=== PATIENT | female | born 2000 | race Caucasian/White ===

== ENCOUNTER → 2025-06-06 | Outpatient (CLI) | payer SELFPAY ==
[2025-06-06 10:21] LABS: Hematocrit 36.8 % (37-47); Hemoglobin 12.7 g/dL (12.0-15.0); Immature Granulocytes Count 0.050 X10^3/uL (0.0-0.0); Mean Corp Hgb Conc 34.5 g/dL (32-36); Mean Corpuscular Volume 90.4 fL (81-99); Mean Platelet Vol. 10.6 fl (6.2-12.0); NRBC Flagged by Analyzer 0 % (0-5); Platelet Count 251 K/mm3 (150-450); RBC Distribution Width CV 12.6 % (11.6-14.6); RBC Distribution Width SD 41.4 fl (35.1-43.9); Red Blood Count 4.07 M/mm3 (4.2-5.4); White Blood Count 10.4 K/mm3 (4.4-11.0)
[2025-06-06 11:11] LABS: Glucose Challenge Gest 1H 50g 103 mg/dL (70-140); HIV Nonreactive (Nonreactive); Syphilis Antibodies Nonreactive (Nonreactive)
== END | disposition home or self-care (01) ==
LOC: BWCLAB 09:42
PROVIDERS: PCP Nurse Practitioner Family; Referring Provider Obstetrics & Gynecology; Visit Provider Obstetrics & Gynecology
DX: O09.90 Supervision of high risk pregnancy, unspecified, unspecified trimester (principal); E89.2 Postprocedural hypoparathyroidism; Z3A.00 Weeks of gestation of pregnancy not specified; Z78.9 Other specified health status
CPT/HCPCS: 36415; 82950; 84443; 85025; 86703; 86780; 86787; 86850; 86900; 86901

== ENCOUNTER → 2025-08-01 | Outpatient (CLI) | payer SELFPAY ==
[2025-08-01 12:18] LABS: Hematocrit 35.3 % (37-47); Hemoglobin 12.0 g/dL (12.0-15.0); Immature Granulocytes Count 0.060 X10^3/uL (0.0-0.0); Mean Corp Hgb Conc 34.0 g/dL (32-36); Mean Corpuscular Volume 91.2 fL (81-99); Mean Platelet Vol. 11.5 fl (6.2-12.0); NRBC Flagged by Analyzer 0 % (0-5); Platelet Count 233 K/mm3 (150-450); RBC Distribution Width CV 13.2 % (11.6-14.6); RBC Distribution Width SD 42.9 fl (35.1-43.9); Red Blood Count 3.87 M/mm3 (4.2-5.4); White Blood Count 10.8 K/mm3 (4.4-11.0)
[2025-08-01 12:59] LABS: Creatinine, Urine (random) 45.30 mg/dL (28.00-217.00); Protein, Urine (Random) 8.1 mg/dL (0.0-12.0); Protein:Creat Ratio 179 mg/g CRE (0-200)
[2025-08-01 13:44] LABS: AST(SGOT) 17 U/L (<=31); Alanine Aminotransfer ALT/SGPT 11 U/L (<=34); Albumin, Serum 3.6 g/dL (3.5-5.0); Alkaline Phosphatase 100 U/L (35-104); Anion Gap 12 (5-15); BUN 10 mg/dL (4-19); BUN/Creat Ratio 21.4 RATIO (10-20); Calcium,Total 9.0 mg/dL (7.6-11.0); Carbon Dioxide 21.1 mmol/L (21.0-32.0); Chloride 105 mmol/L (98-108); Globulin 3.0 g/dL (2.2-4.2); Glucose 80 mg/dL (70-99); LDH 168 U/L (84-246); Potassium 4.0 mmol/L (3.3-5.1)
== END | disposition home or self-care (01) ==
PROVIDERS: PCP Nurse Practitioner Family; Referring Provider Obstetrics & Gynecology; Visit Provider Obstetrics & Gynecology
DX: O09.90 Supervision of high risk pregnancy, unspecified, unspecified trimester (principal); R51.9 Headache, unspecified
CPT/HCPCS: 36415; 80053; 82570; 83615; 84156; 85025; 87081

== ENCOUNTER 2025-08-15 11:43 | Outpatient (CLI) | payer MEDICAID, SELFPAY ==
[2025-08-15 12:14] VITALS: BP 129/86; PULSE 93
[2025-08-15 12:26] VITALS: BMI 23.0
[2025-08-15 12:29] VITALS: BP 128/91; PULSE 83
[2025-08-15 12:34] VITALS: BP 126/88; PULSE 88
[2025-08-15 12:44] VITALS: BP 129/87; PULSE 83
--- NOTE | 2025-08-19 21:49 | OB.TRI.PN ---
Progress Notes Date of Service: 08/15/25 Progress Note: patient seen at 37 weeks for elevate dbps- patient refused bloodwork, had already hda monitoring in office for nst. ham bps all WNL. reviewed with patient precautions, patient stable for dc to home
== END 2025-08-15 13:00 | disposition home or self-care (01) ==
LOC: WPOUT 11:44 → WP 11:44
PROVIDERS: PCP Nurse Practitioner Family; Referring Provider Obstetrics & Gynecology; Visit Provider Obstetrics & Gynecology
DX: O99.891 Other specified diseases and conditions complicating pregnancy (principal); R03.0 Elevated blood-pressure reading, without diagnosis of hypertension; Z79.82 Long term (current) use of aspirin; Z79.899 Other long term (current) drug therapy; Z3A.37 37 weeks gestation of pregnancy
CPT/HCPCS: 99221; G0378

== ENCOUNTER 2025-08-22 12:26 | Inpatient (IN) | payer MEDICAID, SELFPAY ==
[2025-08-22] VITALS (23 sets, daily range): BP systolic 132–147; BP diastolic 79–104; PULSE 68–83; RESP 16–18; TEMP 36.1–37; O2SAT 96–100; BMI 23.4
[2025-08-22] MEDS: 0.9% Saline Lock 10 ML Syringe IV (13:15)
[2025-08-22 13:33] LABS: Hematocrit 35.5 % (37-47); Hemoglobin 12.3 g/dL (12.0-15.0); Immature Granulocytes Count 0.030 X10^3/uL (0.0-0.0); Mean Corp Hgb Conc 34.6 g/dL (32-36); Mean Corpuscular Volume 90.1 fL (81-99); Mean Platelet Vol. 11.5 fl (6.2-12.0); NRBC Flagged by Analyzer 0 % (0-5); Platelet Count 227 K/mm3 (150-450); RBC Distribution Width CV 12.9 % (11.6-14.6); RBC Distribution Width SD 42.4 fl (35.1-43.9); Red Blood Count 3.94 M/mm3 (4.2-5.4); White Blood Count 9.6 K/mm3 (4.4-11.0)
[2025-08-22 14:23] LABS: Creatinine, Urine (random) 14.00 mg/dL (28.00-217.00); Protein, Urine (Random) < 6.0 mg/dL (0.0-12.0); Protein:Creat Ratio 220 mg/g CRE (0-200)
[2025-08-22 14:24] LABS: AST(SGOT) 20 U/L (<=31); Uric Acid 4.4 mg/dL (2.6-6.0)
[2025-08-22 14:31] LABS: Alanine Aminotransfer ALT/SGPT 12 U/L (<=34); Estimated Creatinine Clearance 177.76 ml/min (50-250); Hepatitis C Antibody Nonreactive (Nonreactive)
[2025-08-22 14:32] LABS: Syphilis Antibodies Nonreactive (Nonreactive)
[2025-08-22 14:36] LABS: Hepatitis B Surface Antigen Nonreactive (Nonreactive)
--- NOTE | 2025-08-22 18:29 | PCM.HP.OB ---
HPI - General General Date of Admission: 08/22/25 HPI Narrative NATALY STINSON, is a 25 y/o @3 weeks 0 days who presents to l&D for IOL due to gestational hypertension. Her prot:cr ratio was normal and PIH lab serum values all within normal limits. Maternal Data Information JUAN Calculator Estimated Delivery Date Method Current WG Current Estimate 08/29/25 Manual 39w 0d Other Estimates 08/16/25 LMP (Certain) 40w 6d PFSH PFS Medical History (Updated 08/22/25 @ 16:15 by Caro Lu CNM) Gestational HTN Post-surgical hypoparathyroidism Postoperative primary hypothyroidism Hyperthyroidism Home Medications ?Medication ?Instructions ?Recorded ?Last Taken ?Type calcitriol 0.5 mcg capsule 0.5 mcg PO QDAY parahypothroidism 04/16/24 08/21/25 History calcium 315 mg (as 1 tab PO DAILY parahypothyroidism 04/16/24 08/21/25 History citrate)-vitamin D3 5 mcg (200 unit) tablet aspirin 81 mg tablet 81 mg PO QDAY GHTN 06/04/25 08/21/25 History levothyroxine 88 mcg tablet 150 mcg PO .qd, 1/2 on Sundays06/04/25 08/22/25 History thyroid magnesium 250 mg tablet 500 mg PO QDAY muscle cramps 06/04/25 08/22/25 History multivit-min no.71-iron fum 28 1 cap PO DAILY 06/04/25 08/21/25 History mg-folate no.1 1 mg-dha 300 mg capsule ([facility]) Allergy/AdvReac Type Severity Reaction Status Date / Time chocolate AdvReac GI Upset Verified 08/22/25 13:26 cocoa AdvReac unknown Verified 08/22/25 13:26 Family History Grandmother Graves' disease Thyroid eye disease Thyroid disorder Aunt Rico thyroiditis Surgical History History of total thyroidectomy (01/27/24) Social History adopted: No household members: spouse housing: house current occupational status: employed current occupation: self employed dairy farm current occupational exposures/hazards: No pets and animals: Yes (Avoid litterbox) pets and animals: cat(s) history of recent travel: No sexually active: Yes Smoking Status: Never smoker Electronic Cigarette Use: not used second hand exposure: No alcohol intake: current alcohol intake frequency: holidays/special occasions only details: Not while substance use type: does not use well-balanced diet: daily or most days caffeine: Yes Type: coffee Number of servings: 1 and tea Number of servings: 1 eating out: 1-3 times/week during the past year weight has: increased > 10 lbs what type of physical activity do you participate in: other details: Farm work frequency: daily duration: > 90 minutes/day thiago/faith: Episcopal seatbelt use: always do you feel safe at home: Yes additional social history: [employer] History 1 Elective abortions Hx Para 0 Spontaneous abortions Hx # Term Pregnancies Ectopic pregnancies Hx # Pregnancies Multiple births # of living children Visit Details Expected Delivery Route/Plan NAVIN fom cross tie turner Labor Preferences- CB/BF classes: [] labor support person: [] labor intervention preferences: [] pain management options preferred: [] cut cord/dad catch: [] : [] PP control planned: [] discussed possible routes of delivery and associated risks: [] special requests: [] Plans Covid status: [] Flu vaccine: [] Tdap vaccine: [] Rhogam: [] LARC form signed: [] Problem list reviewed and updated with the most current plan of care details and appropriate orders placed. Relevant counseling for the gestational age provided. Continue routine care and follow up unless otherwise noted in visit notes/problem list details OB Flowsheet Initial Weight: Not Recorded Date <del>?</del> EGA Weight BP Urine Prot <del>?</del> Glucose FHR FuHt Pres Dilation <del>?</del> Effaced St Visit Note 06/06/25 <del>?</del> 28w 0d 145 lb 3 oz 128/86 Negative <del>?</del> Negative 145 28 <del>?</del> SM- late NAVIN from home cross tie turner due to thyroid/parathyroid disease. no vb lof good fm no reuglar ctx draw labs and gct today. obtian records from [employer] gr[employer] external 06/20/25 <del>?</del> 30w 0d 147 lb 7 oz 124/87 Negative <del>?</del> Negative 150 29 <del>?</del> KW- no vb/lof/ctx. good fm. scheduled to get labs done again with endo in the next 5 days. passed glucose. CBE discussed. LARC today. 07/04/25 <del>?</del> 32w 0d 151 lb 6 oz 124/86 Negative <del>?</del> Negative 150 32 <del>?</del> JV- TSH Rab results are negative. JV- TSH Rab results are negative. NST reactive after 30 minutes and cold water. 10 x 10 accels 07/18/25 <del>?</del> 34w 0d 154 lb 7 oz 125/86 Negative <del>?</del> Negative 140 34 <del>?</del> SM- no vb lof good fm n oreuglar ctx discussed heartburn 07/25/25 <del>?</del> 35w 0d 158 lb 144/92 134/92 Negative <del>?</del> Negative 140 34 <del>?</del> KW- NST only-reactive. 08/01/25 <del>?</del> 36w 0d 157 lb 3 oz 131/88 Negative <del>?</del> Negative 145 Cephalic 0 <del>?</del> -3 JV- no lof, vaginal bleeding, or dec fm. gbs today. JV- no lof, vaginal bleeding, or dec fm. gbs today. ELIE is 15 and baby is vtx. nst reactive. sending for PIH labs due to on and off headaches. none now. She states bp's at home are a little high at night. takes baby asa. 08/05/25 <del>?</del> 36w 4d 160 lb 139/94 125/85 Negative <del>?</del> Negative 140 <del>?</del> KW- no vb/lof/ctx. good fm reactive NST. declines vaginal exam. GBS neg 08/15/25 <del>?</del> 38w 0d 160 lb 9 oz 131/92 130/91 Negative <del>?</del> Negative 140 0 <del>?</del> SM- to l and d for evlauaiton of bps. no vb lof good fm no regular ctx bps normal at home 08/22/25 <del>?</del> 39w 0d 159 lb 148/97 Negative <del>?</del> Negative 145 0 <del>?</del> KW- no vb/lof/ctx. good fm. discussed concerns with BP and indication for IOL. patient agrees. to WP for IOL for BPs ROS Constitutional Constitutional: Denies change in weight, fatigue, fever(s), headache(s), poor appetite or weakness Eyes Eyes: Denies blurry vision, change in vision, seeing flashes or spots in vision ENT HEENT: Denies dizziness, headache(s), loss taste/smell or sore throat Cardiovascular Cardiovascular: Denies chest pain, dizziness, dyspnea, irregular heart rhythm, leg edema, palpitations, rapid heart rate or vomiting Respiratory/Chest Respiratory/Chest: Denies chest tightness, cough, dyspnea or breast pain Gastrointestinal Gastrointestinal: Denies abdominal pain, anorexia, constipation, cramping, diarrhea, hemorrhoids, vomiting or weight changes Genitourinary Genitourinary: Denies dysuria, flank pain, genital lesions, genital pain, urinary frequency or urinary urgency Musculoskeletal Musculoskeletal: Denies back pain, difficulty walking, joint pain, limited range of motion, muscle cramps or numbness Integumentary Integumentary: Denies lesions or unusual bruising Neurologic Neurologic: Denies abnormal movements, abnormal speech, dizziness, numbness, seizure-like activity or syncope Psychiatric Psychiatric: Denies anxiety, behavioral changes, change in appetite, change in libido, cognitive impairment, confusion, depression, difficulty concentrating, hallucinations or suicidal thoughts Endocrine Endocrinology: Denies excessive sweating, polydipsia or polyuria Hematologic/Lymphatic Hematologic/Lymphatic: Denies easy bleeding, easy bruising or lymphadenopathy Allergic/Immunologic Allergic/Immunologic: Denies itchy eyes, lip swelling, seasonal rhinorrhea, rhinitis, throat swelling, tongue swelling, eczemia, wheezing or asthma Vital Signs Vital Signs Vital Signs: 08/22/25 12:48 08/22/25 12:48 08/22/25 12:48 Temperature Temperature Source Pulse Rate 73 74 Respiratory Rate Blood Pressure 140/101 H BP Systolic 140 BP Diastolic 101 Pulse Ox 08/22/25 12:48 08/22/25 12:48 08/22/25 12:48 Temperature Temperature Source Temporal Pulse Rate Respiratory Rate 16 Blood Pressure BP Systolic BP Diastolic Pulse Ox 97 08/22/25 12:48 08/22/25 13:06 08/22/25 13:06 Temperature 97.3 F L Temperature Source Pulse Rate 76 Respiratory Rate Blood Pressure 133/97 H BP Systolic 133 BP Diastolic 97 Pulse Ox 08/22/25 14:43 08/22/25 14:43 08/22/25 14:43 Temperature 97.0 F L Temperature Source Temporal Pulse Rate Respiratory Rate 16 Blood Pressure BP Systolic BP Diastolic Pulse Ox 08/22/25 14:44 08/22/25 14:44 08/22/25 14:44 Temperature Temperature Source Pulse Rate 83 Respiratory Rate Blood Pressure 138/94 H BP Systolic 138 BP Diastolic 94 Pulse Ox 96 08/22/25 15:39 08/22/25 15:39 08/22/25 15:39 Temperature 97.6 F L Temperature Source Temporal Pulse Rate Respiratory Rate 16 Blood Pressure BP Systolic BP Diastolic Pulse Ox 08/22/25 15:40 08/22/25 15:40 08/22/25 16:42 Temperature Temperature Source Pulse Rate 75 Respiratory Rate Blood Pressure 139/100 H 132/93 H BP Systolic 139 132 BP Diastolic 100 93 Pulse Ox 08/22/25 16:42 08/22/25 16:42 08/22/25 16:42 Temperature Temperature Source Temporal Pulse Rate 75 Respiratory Rate 16 Blood Pressure BP Systolic BP Diastolic Pulse Ox 08/22/25 16:42 08/22/25 18:01 08/22/25 18:01 Temperature 97.5 F L Temperature Source Pulse Rate 74 Respiratory Rate Blood Pressure 138/103 H BP Systolic 138 BP Diastolic 103 Pulse Ox 08/22/25 18:01 08/22/25 18:01 08/22/25 18:01 Temperature 97.9 F Temperature Source Temporal Pulse Rate Respiratory Rate 16 Blood Pressure BP Systolic BP Diastolic Pulse Ox Weight Weight: 159 lb Body Mass Index (BMI) 23.4 Physical Exam Const alert, oriented x3, no apparent distress and healthy appearing General Appearance: cooperative; Negative for anxious HEENT normocephalic Face and Sinus: normal facial exam Eyes EOMs intact bilaterally and no scleral icterus General Eye: normal appearance of both eyes Neck full ROM and supple Lymph Lymphatic: no lymphadenopathy noted Resp normal respiratory effort Effort and Inspection: able to speak in complete sentences Cardio regular rate GI soft to palpation and non-tender Inspection: gravid Palpation: soft; Negative for tender Back/Spine no CVA tenderness Extremity normal to inspection, full ROM and no clubbing, cyanosis or edema General Extremity: Negative for calf tenderness or edema Skin Lesions: no lesions Rashes: no rashes Psych mental status grossly normal Labs Labs Labs: Blood Type A POSITIVE Antibody Screen NEGATIVE Hct, (37-47) 35.5 % L Hgb, (12.0-15.0) 12.3 g/dL Syphilis Total Ab, (Nonreactive) Nonreactive VZV IgG Antibody Rubella IgG Antibody, (Nonreactive) Nonreactive Hep Bs Antigen, (Nonreactive) Nonreactive Hepatitis C Antibody, (Nonreactive) Nonreactive HIV 1&2 Antibody, (Nonreactive) Nonreactive Glucose 1 Hr 50 gm, (70-140) 103 mg/dL Miscellaneous Test, (.) COMMENT Assessment & Plan (1) PIH ( induced hypertension): (2) Headache in : (3) Supervision of high-risk : COMMENT: , JUAN 08/29/25, girl Corah Gonzalez (4) : QUALIFIERS: Weeks of gestation: 39 weeks Qualified Code(s): Z3A.39 - 39 weeks gestation of COMMENT: GBS neg, declined NIPT & Carrier testing, NAVIN to [facility] @ 28wks (5) Varicose veins during : COMMENT: left calf (6) Unknown varicella vaccination status: (7) Thyroid eye disease: (8) Post-surgical hypoparathyroidism: COMMENT: ANC form sent to L and D. On calcium replacement, per [employer] gr[employer] external, needs followed after for possible thyroid/parathyroid suppression. Approved for delivery [facility]. Order OB Maternal Graves Panel in 3rd trimester. (9) Postoperative primary hypothyroidism: COMMENT: Weekly NSTs @ 32 weeks. Growth US q4 with MFM. Sees endocrine, on replacement. Monthly Ca level checks. Deliver @ 39 weeks. PLAN: Plan Patient presents IOL, plan management for with cytotec tonight.- cervix still closed after 1st dose. initiating 2nd dose now. Pain management: plans epidural. GBS negative. Management of any complications: see above I have reviewed the PFSH and made any clinically relevant updates.
[2025-08-22] MEDS: Calcium Carb/Vitamin D 1 TABLET Tablet 2 TABLET PO (19:07)
[2025-08-22] MEDS: LACTATED RINGERS 500 ML 999 ML IV (23:02)
[2025-08-22] MEDS: Lactated Ringers 1,000 ML 999 ML IV (23:33)
[2025-08-22] MEDS: fentaNYL-bupivacaine (epidural) 100 ML BAG EPIDURAL (23:51)
[2025-08-23] VITALS (25 sets, daily range): BP systolic 119–146; BP diastolic 76–101; PULSE 71–106; RESP 14–18; TEMP 36.4–37.4; O2SAT 95–98
[2025-08-23] MEDS: Lactated Ringers 1,000 ML 200 ML IV (00:05)
[2025-08-23] MEDS: LACTATED RINGERS 500 ML 999 ML IV (01:40)
[2025-08-23] MEDS: Oxytocin 15 Units/NS 250ml 15 UNITS/250 ML IV.SOLN 334 UNITS IV (04:13)
--- NOTE | 2025-08-23 04:23 | EX.PCM.OBVAG ---
Assessment & Plan (1) PIH ( induced hypertension): (2) Rubella non-immune status, antepartum: COMMENT: offer PP (3) Supervision of high-risk : COMMENT: , JUAN 08/29/25, girl Galindoah Gonzalez (4) Unknown varicella vaccination status: (5) Post-surgical hypoparathyroidism: COMMENT: ANC form sent to L and D. On calcium replacement, per associate professor of medicine, needs followed after for possible thyroid/parathyroid suppression. Approved for delivery [facility]. Order OB Maternal Graves Panel in 3rd trimester. (6) Postoperative primary hypothyroidism: COMMENT: Weekly NSTs @ 32 weeks. Growth US q4 with MFM. Sees endocrine, on replacement. Monthly Ca level checks. Deliver @ 39 weeks. Maternal Data Information JUAN Calculator Estimated Delivery Date Method Current WG Current Estimate 08/29/25 Manual 39w 1d Other Estimates 08/16/25 LMP (Certain) 41w 0d Final JUAN: 08/29/25 Gestational age: 39 weeks 1 day Vaginal Delivery Maternal Presentation Maternal Presentation: Medically Indicated Induction Maternal Presentation: The patient presented for induction of labor for gestational hypertension. Type of Induction: Cytotec Medical Reason for Induction: Other ( induced hypertension ) Vaginal Delivery Information Procedure Performed: Spontaneous Vaginal Delivery Surgeon/Practitioner: Maru Toro Date of Procedure: 08/23/25 Pre-Procedure Diagnosis: PIH, @ 39 weeks 1 day Post-Procedure Diagnosis: PIH, @ 39 weeks 1 day Type of anesthesia: Epidural Estimated Blood Loss: 100cc Time of Delivery: 04:09 Findings Description of procedure: Patient began pushing and delivered the head in the MADAN presentation. The head was delivered atraumatically and a loose nuchal cord ?1 was identified. The anterior and posterior shoulders delivered without complication followed by the rest of the infant and the was placed on the maternal abdomen. The was delivered through the umbilical cord. Delayed cord clamping was employed for approximately 60 seconds. Cord was clamped and cut and gentle traction was applied to the cord and the placenta delivered spontaneously immediately following it was noted to be intact with three-vessel cord. The perineum and vagina were inspected and noted to have a 1st degree laceration. This was repaired with a 3-0 vicryl. EBL was 100 cc. Patient and tolerated delivery well. Procedure findings: viable femle infant, scores 8/9, Sade Presentation: Vertex Amniotic Membrane Rupture Type: Spontaneous Amniotic Fluid Description: Clear Placental Delivery Description: Spontaneous Placenta Disposition: [facility] Specimen collected: No Cord Vessel Description: 3 Vessels Cord Entanglement: Around neck x 1, tight Nuchal Cord Compression: Without compression Infant A Gender: Female (1 minute): 8 (5 minute): 9 Delayed Cord Clamping: Yes Entrepreneurship Program Director staff genetic counselor: No Post Vaginal Deli Medications given after delivery: IV Pitocin Episiotomy Description: None Laceration: 1st degree Complication Complications: No Multi Select Codes Urinary/Genital Urinary/Genital CPT Codes: 85874 Vaginal Delivery+ PP Care([facility])
--- NOTE | 2025-08-23 04:28 | DCINST_ITS ---
Discharge Instructions
--- NOTE | 2025-08-23 04:28 | PCM.DC ---
Discharge Instructions DC O2, CPAP, BIPAP needs Home O2 Discharge instructions: No Dressing / Incision Discharge Activity: Return to Normal Activity, May Not Drive (while taking narcotic pain medications.) and May Shower May resume sexual activity in: 4-6 weeks Dressing / Incision Call your doctor if your incision/area has: Continuous Slow Oozing, Sudden Increased Bleeding, Increased Pain/ Swelling, Increased Redness and Foul Smelling Discharge Follow Up Care Please Follow Up With: Maru Toro DO When: Call [phone] to make an appointment with your doctor in 6 weeks. If you had elevated blood pressure or 4th degree laceration, you will need to be seen in 2 weeks. Test Results: Test results from this visit will be discussed in further detail at your follow-up appointment, if applicable. Discharge Plan Admission Admit Date/Time: 08/22/25 12:26 Attending Provider: Maru Toro Primary Care Provider: Sarita Rasmussen Discharge Orders/Prescriptions Prescriptions: No Action calcitriol 0.5 mcg capsule 0.5 mcg PO QDAY calcium citrate-vitamin D3 315 mg-5 mcg (200 unit) tablet 1 tab PO DAILY levothyroxine 88 mcg tablet 150 mcg PO .qd, 1/2 on Sundays aspirin 81 mg tablet 81 mg PO QDAY [facility] 28-1-300 mg capsule 1 cap PO DAILY magnesium 250 mg tablet 500 mg PO QDAY Referrals / Follow Up: Sarita Rasmussen, [employer] [Primary Care Provider, Family Practice]
[2025-08-23] MEDS: Oxytocin 15 Units/NS 250ml 15 UNITS/250 ML IV.SOLN 83 UNITS IV (04:43)
[2025-08-23] MEDS: Magnesium Chloride 64 MG Delay Rel.Tablet 128 MG PO (10:25)
[2025-08-23] MEDS: Calcium Carb/Vitamin D 1 TABLET Tablet PO ×2 (10:25→15:32)
[2025-08-24 00:47] VITALS: BP 119/78; PULSE 70; RESP 16; TEMP 36.6; O2SAT 96
[2025-08-24 04:22] VITALS: BP 122/88; PULSE 79; RESP 16; TEMP 36.6; O2SAT 96
[2025-08-24 08:56] VITALS: BP 113/78; PULSE 88; RESP 16; TEMP 36.5
--- NOTE | 2025-08-24 09:25 | PCM.PN.OB ---
Subjective Subjective Patient doing well without complaints. Tolerating PO. Ambulating and voiding without difficulty. Feeding well. Denies chest pain, shortness of breath, calf pain/swelling, fevers, chills, lightheadedness. Objective Data Objective Data Vital Signs: Vital Signs Temp Pulse Resp BP Pulse Ox O2 Del Method 97.7 F L 88 16 113/78 96 Room Air 08/24/25 08:56 08/24/25 08:56 08/24/25 08:56 08/24/25 08:56 08/24/25 04:22 08/24/25 08:56 Oxygen Delivery Method Room Air Weight: 159 lb Body Mass Index (BMI) 23.4 Intake & Output: Intake and Output for Last 24 Hours 08/22/25 08/23/25 08/24/25 23:59 23:59 23:59 Intake Total 500 / 500 2276.47 / 2276.47 Output Total 1325 / 1325 Balance 500 / 500 951.47 / 951.47 Lab / Micro Data 08/22/25 13:15 08/22/25 13:15 ROS Constitutional Constitutional: Denies chills, fatigue, fever(s), poor appetite or weakness Eyes Eyes: Denies blurry vision, change in vision, seeing flashes or spots in vision ENT HEENT: Denies dizziness, headache(s), loss taste/smell or sore throat Cardiovascular Cardiovascular: Denies chest pain, dizziness, dyspnea, irregular heart rhythm, palpitations or rapid heart rate Respiratory/Chest Respiratory/Chest: Denies chest tightness, cough, dyspnea or breast pain Gastrointestinal Gastrointestinal: Denies abdominal pain, constipation or vomiting Genitourinary Genitourinary: Denies dysuria or flank pain Musculoskeletal Musculoskeletal: Denies difficulty walking, joint pain, limited range of motion or numbness Neurologic Neurologic: Denies abnormal movements, abnormal speech, dizziness, numbness, seizure-like activity or syncope Psychiatric Psychiatric: Denies anxiety, behavioral changes, change in appetite, confusion, depression or suicidal thoughts Physical Exam Const alert, oriented x3 and no apparent distress General Appearance: cooperative and comfortable Resp normal respiratory effort Cardio regular rate GI normal to inspection, nondistended, normoactive bowel sounds GI Narrative: uterus is firm below umbilicus Palpation: soft Back/Spine no CVA tenderness and thoraco-lumbar ROM normal Extremity normal to inspection, no clubbing, cyanosis or edema, no calf tenderness and no pedal edema Psych mental status grossly normal, thought process normal, cooperative, affect normal, speech normal, activity/motor behavior normal, denies homicidal ideation and denies suicidal ideation Assessment & Plan (1) Vaginal delivery: COMMENT: Girl Sade- JV 08/24/25 (2) Rubella non-immune status, antepartum: COMMENT: offer PP (3) PIH ( induced hypertension): (4) Headache in : (5) Supervision of high-risk : COMMENT: , JUAN 08/29/25, girl Rohan Gonzalez (6) : QUALIFIERS: Weeks of gestation: 39 weeks Qualified Code(s): Z3A.39 - 39 weeks gestation of COMMENT: GBS neg, declined NIPT & Carrier testing, NAVIN to [facility] @ 28wks (7) Varicose veins during : COMMENT: left calf (8) Unknown varicella vaccination status: (9) Thyroid eye disease: (10) Post-surgical hypoparathyroidism: COMMENT: ANC form sent to L and D. On calcium replacement, per iron plastic bullet maker, infant needs followed after for possible thyroid/parathyroid suppression. Approved for delivery [facility]. Order OB Maternal Graves Panel in 3rd trimester. (11) Postoperative primary hypothyroidism: COMMENT: Weekly NSTs @ 32 weeks. Growth US q4 with MFM. Sees endocrine, on replacement. Monthly Ca level checks. Deliver @ 39 weeks. PLAN: Plan s/p PPD # 1 1. routine post delivery care 2. breast feeding- support given 3. rh positive 4. rubella non-immune- vaccine discussed 5. patient would like dc to home today
== END 2025-08-24 10:45 | disposition home or self-care (01) | DRG 560 ==
PROVIDERS: Admitting Provider Obstetrics & Gynecology; PCP Nurse Practitioner Family; Referring Provider Obstetrics & Gynecology; Visit Provider Obstetrics & Gynecology
DX: O13.4 Gestational [pregnancy-induced] hypertension without significant proteinuria, complicating childbirth (principal); Z37.0 Single live birth; E89.0 Postprocedural hypothyroidism; E89.2 Postprocedural hypoparathyroidism; Z3A.39 39 weeks gestation of pregnancy; O99.284 Endocrine, nutritional and metabolic diseases complicating childbirth; O70.0 First degree perineal laceration during delivery; O87.4 Varicose veins of lower extremity in the puerperium; O69.81X0 Labor and delivery complicated by cord around neck, without compression, not applicable or unspecified; Z79.890 Hormone replacement therapy; Z79.82 Long term (current) use of aspirin
CPT/HCPCS: 59025; 59050; 82565; 82570; 84156; 84450; 84460; 84550; 85025; 86762; 86780; 86803; 86850; 86900; 86901; 87340; 99221; A4216; G0378